=== PATIENT | male | born 1955 | race Caucasian/White ===

== ENCOUNTER 2017-04-07 13:59 | Emergency (ER) | payer OTHER ==
[~2017-04-07] VITALS: Ht 190.5 cm; Wt 121.6 kg
[2017-04-07 14:41] VITALS: BP 156/72
== END 2017-04-07 16:00 | disposition home or self-care (01) ==
LOC: ER 14:08
DX: M25.562 Pain in left knee (principal); E78.00 Pure hypercholesterolemia, unspecified; Z88.0 Allergy status to penicillin
CPT/HCPCS: 73564-TC; A4606; Z7610